=== PATIENT | male | born 1985 | race Caucasian/White ===

== ENCOUNTER 2017-11-28 13:32 | Observation (INO) | payer OTHER ==
[~2017-11-28] VITALS: Ht 188 cm; Wt 97.5 kg
[2017-11-28 15:02] LABS: BASOPHILS # (AUTO) 0.1 (0.0-0.1); BASOPHILS % 0.8 % (0.0-1.0); EOSINOPHILS % 0.4 % (0.0-6.0); HEMATOCRIT 38.3 % (38.2-49.6); HEMOGLOBIN 13.3 g/dL (14.0-18.0); LYMPHOCYTES # (AUTO) 1.3 (1.0-3.2); LYMPHOCYTES % 16.7 % (18.0-39.1); MEAN CORPUSCULAR HEMOGLOBIN 30.4 pg (28-32); MEAN CORPUSCULAR HGB CONC 34.7 g/dL (31-35); MEAN CORPUSCULAR VOLUME 87.6 fL (81-99); MONOCYTES # (AUTO) 0.4 (0.2-0.8); MONOCYTES % 4.6 % (4.4-11.3); NEUTROPHILS # (AUTO) 6.1 (2.1-6.9); NEUTROPHILS % 77.1 % (38.7-80.0); PLATELET COUNT 207 x10e3/uL (140-360); RED BLOOD COUNT 4.37 x10e6/uL (4.3-5.7); RED CELL DISTRIBUTION WIDTH 12.4 % (11.7-14.4)
[2017-11-28 15:06] LABS: INR 1.1; PROTHROMBIN TIME 13.4 seconds (11.9-14.5)
[2017-11-28 15:07] LABS: PARTIAL THROMBOPLASTIN TIME 23.7 seconds (23.8-35.5)
[2017-11-28 15:14] LABS: ALANINE AMINOTRANSFERASE 24 IU/L (0-55); ALBUMIN 4.3 g/dL (3.5-5.0); ALBUMIN/GLOBULIN RATIO 1.4 (0.8-2.0); ALKALINE PHOSPHATASE 41 IU/L (40-150); ANION GAP 11.2 mmol/L (8-16); BLOOD UREA NITROGEN 35 mg/dL (7-26); BUN/CREATININE RATIO 34 (6-25); CALCIUM 9.3 mg/dL (8.4-10.2); CARBON DIOXIDE 28 mmol/L (22-29); CHLORIDE 103 mmol/L (98-107); CREATININE, SERUM 1.03 mg/dL (0.72-1.25); EST GLOMERULAR FILTRATION RATE > 60 ML/MIN (60-); GLUCOSE 114 mg/dL (74-118); POTASSIUM 4.2 mmol/L (3.5-5.1); SODIUM 138 mmol/L (136-145)
[2017-11-28] MEDS ORDERED: PANTOPRAZOLE 40 MG 10ML VIAL IV SCH (16:15)
[2017-11-28] MEDS ORDERED: SODIUM CHLORIDE FLUSH 10 ML SYR INJ PRN (16:45)
[2017-11-28] MEDS: SODIUM CHLORIDE 0.9% 1000ML 1,000 ML IV SCH ×2 (16:59→21:15)
[2017-11-28 18:33] LABS: HEMOGLOBIN 11.8 g/dL (14.0-18.0)
--- NOTE | 2017-11-28 19:26 | History and Physical ---
PRIMARY CARE PHYSICIAN: None CHIEF COMPLAINT: Black watery stool. HISTORY OF PRESENT ILLNESS: This is a 32-year-old man with a history of colitis, who only takes aspirin daily at home, now developing black watery stool with associated lightheadedness. He had 2 episodes of this. It occurred when he arrived in the emergency room. The patient admits to drinking about 10 beers on Monday and 8 beers on Monday. He denied any abdominal pain. Denies any nausea or vomiting. Denies any other symptoms. PAST MEDICAL HISTORY: Colitis, left leg varicose vein. PAST SURGICAL HISTORY: Tonsillectomy and adenoidectomy. ALLERGIES: PER ELECTRONIC MEDICAL RECORD. FAMILY HISTORY: Paternal grandmother had diabetes. Paternal uncle had Crohn disease. SOCIAL HISTORY: Patient is . He has no children. Drinks alcohol about 4 days out of the week, typically about 2 beers a day, but some times increases as much as 10 beers a day. 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 MEDICATIONS: Aspirin only. REVIEW OF SYSTEMS: Denies any dizziness, chest pain or shortness of breath. PHYSICAL EXAMINATION VITAL SIGNS: Have been reviewed. GENERAL: No acute distress. Resting in bed. HEENT: Anicteric. CARDIOVASCULAR: Normal S1 and S2. LUNGS: Moderate breath sounds. ABDOMEN: Soft, nontender and nondistended. EXTREMITIES: No edema or calf tenderness. NEUROLOGICAL: He is alert and oriented times 3. Moves all extremities. SKIN: Dry. PSYCHIATRIC: Normal affect. LABS: Reviewed. MEDICATIONS: Reviewed. ASSESSMENT AND PLAN: This is a 32-year-old man with: 1. Melena: Will follow his blood counts. Treat him with intravenous Protonix q.12 h. Gastroenterology consultation. 2. History of colitis: Will obtain computerized tomography scan of the abdomen and pelvis to evaluate in a patient with a history of colitis. 3. Overweight state: Body mass index 27.6. His glucose is 114. 4. Normocytic anemia, mild to moderate: Will follow up. 5. Hypotension: Blood pressure 109/53. Will rehydrate and reassess. 6. Dehydration: Rehydrate the patient. 7. Dizziness: Secondary to his dehydration. Will rehydrate. 8. Prophylaxis: Will use sequential compression devices and proton pump inhibitor. 9. Disposition: Obtain computerized tomography scan of the abdomen and pelvis. Gastroenterology consultation. Monitor closely. Job#: [id number]
[2017-11-28] MEDS ORDERED: PROTONIX 200MG/SODIUM CHLORIDE 0.9% 250 ML BAG IV SCH (20:00)
[2017-11-28] MEDS ORDERED: MIDAZOLAM HCL 2 MG/2 ML VIAL ONE (20:07)
[2017-11-28] MEDS ORDERED: FENTANYL CITRATE/PF 100MCG/2 ML INJ ONE (20:07)
[2017-11-28 20:12] VITALS: BP 129/60
--- NOTE | 2017-11-28 20:15 | Consultation ---
DATE OF CONSULTATION: November 28, 2017 GASTROENTEROLOGY CONSULTATION REASON FOR CONSULTATION: GI bleed. REFERRING PHYSICIAN: Dr. Wheeler. HISTORY OF PRESENT ILLNESS: Mr. Magallanes is a pleasant 32-year-old man with limited past medical history. He reports he was feeling well until Monday. That day he had a golfing tournament associated with his work. It was hot outside and he had sweating and had a few beers throughout the day. That night he was feeling ill and vomited and it had a small amount of bright red blood in it. After that he actually felt well and including yesterday was able to do yard work outside. Then around 12:30 today he had eaten a salad around noon and developed melena. He had dark black tarry stools at 12:30. He has had 2 more episodes in the ER; however, it seems to be decreasing. He has no abdominal pain, but does have a queasy feeling in his stomach in the epigastric region. He has had no previous history of GI bleed, although had an acute infectious colitis apparently in 2016 after travel to [facility]. He does take aspirin daily but no other NSAIDs. PAST MEDICAL HISTORY: What sounds like acute colitis after visiting [facility] in 2016. Left leg varicosity for which he was taking aspirin. SOCIAL HISTORY: Occasional alcohol, no tobacco or illicit substances. PAST SURGICAL HISTORY: Tonsillectomy, adenoidectomy he was about 5 years old. FAMILY HISTORY: Positive for Crohn's disease in his paternal uncle. REVIEW OF SYSTEMS: No chest pain or shortness of breath. No syncopal episodes. MEDICATIONS AND ALLERGIES: Reviewed. Please see MAR medication reconciliation form. PHYSICAL EXAMINATION: GENERAL: Pleasant, alert, oriented in no acute distress. HEENT: Pupils are equal, round, and reactive to light. NECK: Supple. LUNGS: Clear. CARDIOVASCULAR: S1 and S2. ABDOMEN: Soft, some discomfort with deep palpation in the epigastric region. No rebound, guarding or mass. EXTREMITIES: No cyanosis, clubbing or edema. PSYCHIATRIC: Calm and cooperative. NEUROLOGIC: Nonfocal. HEME/ONC: No bruising or adenopathy. Electronic health record is reviewed for laboratory and radiologic studies as well as history. ASSESSMENT: 1. Likely upper gastrointestinal bleed with recent hematemesis on Monday and melena in the setting of aspirin use. 2. Acute blood loss anemia. PLAN: At the current time, I will put him on Protonix drip. He has not been n.p.o. for 8 hours. He is hemodynamically stable. The melena is decreasing Will plan for upper endoscopy in the morning. Risks, benefits and alternatives of the procedure itself were discussed. He would like to proceed. Thank you very much for asking me to see Mr. Magallanes. Any questions or concerns, please do not hesitate to contact me. Job#: [id number]
[2017-11-28] MEDS ORDERED: ASPIRIN81 MG PO (20:31)
[2017-11-28] MEDS ORDERED: PROBIOTIC & AC1 EACH PO (20:31)
--- NOTE | 2017-11-28 20:34 | Diagnostic Imaging Report ---
CT Abdomen And Pelvis with Intravenous Contrast INDICATION: Melena. History of colitis. TECHNIQUE: Thin collimation axial images obtained from the diaphragm to the level of the pubic symphysis following the uneventful administration of 100 cc of low osmolar, nonionic intravenous contrast. RADIATION DOSE: Total DLP: 734.5 mGy*cm Estimated effective dose: (DLP x 0.015 x size factor) mSv CTDIvol has been reviewed. It is below the limits set by the Radiation Protocol Committee (RPC). COMPARISON: None. ABDOMEN FINDINGS: Lung Bases: Clear. A tiny right pleural effusion may be developing. The visualized portions of the mediastinum are normal.. Liver: Normal attenuation. No evidence for mass. Gallbladder: Present and appears normal. No biliary ductal dilatation. Pancreas: Normal attenuation without mass or ductal dilatation. Spleen: Normal in size. No evidence of mass.. Adrenal Glands: No evidence for mass. Kidneys: Right: Normal enhancement. No soft tissue mass. No hydronephrosis. Left: Normal enhancement. No soft tissue mass. No hydronephrosis. Lymph Nodes: No lymphadenopathy. Aorta: Normal in diameter PELVIS FINDINGS: Bowel: Stomach: Filled with food. No mural thickening or mass. Small Bowel: Normal in caliber with normal wall thickness. The terminal ileum is normal. Large Bowel: The rectum is normal. The descending colon is collapsed without mural thickening or associated inflammation. Transverse colon and ascending colon are normal in diameter without mural thickening or dilatation. Appendix: Normal appendix. Bladder: Well distended and normal. No ureteral dilatation. No lymphadenopathy, free fluid, or fluid collection. Bones: Unremarkable for age. IMPRESSION: 1. No abdomen bowel disease of the bowel to explain melena. No CT evidence of colitis. No bowel obstruction. Normal appendix. 2. A tiny right pleural effusion may be developing. Lung bases are clear. Signed by: Dr. Jaky Noel MD on 11/28/2017 8:31 PM
[2017-11-28] MEDS ORDERED: IOPAMIDOL 370 MG/ML 200 ML INFUS..BTL INJ ONE (20:39)
[2017-11-28] MEDS ORDERED: SODIUM CHLORIDE 0.9% 50ML 50 ML ONE (20:39)
[2017-11-28] MEDS: PANTOPRAZOL 40MG/SOD CHL 0.9% 50 ML IV SCH (21:15)
[2017-11-29] VITALS (8 sets, daily range): BP systolic 57–119; BP diastolic 53–64
[2017-11-29 00:25] LABS: HEMATOCRIT 28.3 % (38.2-49.6)
[2017-11-29] MEDS: PANTOPRAZOL 40MG/SOD CHL 0.9% 50 ML IV SCH ×4 (00:45→16:34)
[2017-11-29] MEDS: SODIUM CHLORIDE 0.9% 1000ML 1,000 ML IV SCH ×3 (04:11→16:34)
[2017-11-29 07:03] LABS: HEMATOCRIT 29.8 % (38.2-49.6); HEMOGLOBIN 10.3 g/dL (14.0-18.0)
[2017-11-29] MEDS ORDERED: EPINEPHRINE HCL INJ 1 MG/ML AMP ONE (07:22)
--- NOTE | 2017-11-29 07:23 | Progress Note ---
DATE: November 29, 2017 TIME: 7 a.m. OVERNIGHT: Had black stool again. REVIEW OF SYSTEMS: Denies any dizziness. VITAL SIGNS: Reviewed. PHYSICAL EXAMINATION GENERAL: A tired-appearing man resting in bed. HEENT: Anicteric. CARDIOVASCULAR: Normal S1 and S2. LUNGS: Moderate breath sounds. ABDOMEN: Soft, nontender and nondistended. EXTREMITIES: No edema. SKIN: Dry. PSYCHIATRIC: Normal affect. LABS: Reviewed. MEDICATIONS: Reviewed. ASSESSMENT AND PLAN: A 32-year-old man. 1. Melena. 2. History of colitis. 3. Overweight state. 4. Normocytic anemia, mild to moderate. 5. Hypotension. 6. Dehydration. 7. Dizziness. PLAN 1. Follow up endoscopy this morning. 2. Continue IV PPI. 3. Continue rehydration. 4. Hemoglobin is 10.0 today. Yesterday, it was 11.8 and 13.3. Job#: [id number]
[2017-11-29 11:59] LABS: HEMATOCRIT 25.6 % (38.2-49.6); HEMOGLOBIN 9.1 g/dL (14.0-18.0)
[2017-11-29] MEDS ORDERED: PROPOFOL IV EMULSION 10 MG/ML 50 ML VIAL ONE (15:24)
[2017-11-29] MEDS ORDERED: PROTONIX40 MG/ML PEG (17:58)
[2017-11-29 18:16] LABS: HEMATOCRIT 26.7 % (38.2-49.6); HEMOGLOBIN 9.2 g/dL (14.0-18.0)
--- NOTE | 2017-11-29 18:23 | Discharge Summary ---
PRINCIPAL DIAGNOSES: 1. Therese-Leonard tear. 2. Melena. 3. Overweight state. 4. Normocytic anemia, mild to moderate. 5. Hypotension secondary to dehydration. 6. Dehydration. 7. Dizziness due to blood loss. SECONDARY DIAGNOSIS: Colitis. CHIEF COMPLAINT: Black stool. HISTORY: This is a 32-year-old man with black stools. Please refer to the H\T\P for further details. HOSPITAL COURSE: He was found to have melena. He underwent endoscopy which showed Therese-Leonard tear treated with Protonix. Aspirin has been discontinued. He is doing better, tolerating diet. He is discharged home to follow up with me in one week. Follow up with GI service in 2 weeks. CONDITION ON DISCHARGE: Stable. DISCHARGE LOCATION: Home. SAE SORENSON MD Job#: [id number]
== END 2017-11-29 19:37 | disposition home or self-care (01) ==
LOC: ER 13:32 → ERHOLD 16:40 → MED/SURG 20:08
PROVIDERS: ADMIT Internal Medicine; ATTEND Internal Medicine
DX: K22.6 Gastro-esophageal laceration-hemorrhage syndrome (principal); D62 Acute posthemorrhagic anemia; K92.1 Melena; E66.3 Overweight; Z68.27 Body mass index [BMI] 27.0-27.9, adult; D64.9 Anemia, unspecified; I95.9 Hypotension, unspecified; E86.0 Dehydration; R42 Dizziness and giddiness; K44.9 Diaphragmatic hernia without obstruction or gangrene
CPT/HCPCS: 36415 ×2; 43236; 74177; 80053; 82270; 83690; 85014 ×2; 85018 ×2; 85025; 85610; 85730; 99284; G0378 ×2; J0171; J2250; J7030 ×2; Q9967; 43235